=== PATIENT | male | born 1965 | race Caucasian/White ===

== ENCOUNTER 2016-12-31 11:57 | Emergency (ER) | payer SELFPAY ==
[2016-12-31 12:10] VITALS: BP 133/95
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
--- NOTE | 2016-12-31 14:01 | CR ---
Right ankle: Four views of the right ankle were obtained. Comparison: No previous study. Small plantar spur is seen. Ankle mortise is symmetric. No acute fracture, dislocation or other bony abnormality is seen. Incidental small sclerotic bone islands are noted within the distal fibula and posterior calcaneus. Impression: 1. Incidental findings. No acute bony abnormality is identified on right ankle exam. Diagnostic code #2
--- NOTE | 2016-12-31 14:01 | CR ---
Right foot: 4 views of the right foot were obtained. Comparison: No previous study. Small plantar spur is seen. Questionable lucent lesion within the proximal phalanx of the first digit is seen. This presumably represents a bone cyst. No acute fracture or other bony abnormality is seen. Impression: 1. Findings suspicious for a bone cyst within the proximal phalanx of the first digit. 2. Small plantar spur. 3. Nothing acute is identified on right foot exam. Diagnostic code #1
== END 2016-12-31 14:01 | disposition home or self-care (01) ==
LOC: JD.ED 11:57
DX: S93.401A Sprain of unspecified ligament of right ankle, initial encounter (principal); F17.210 Nicotine dependence, cigarettes, uncomplicated; Z88.0 Allergy status to penicillin; Z98.890 Other specified postprocedural states; W17.89XA Other fall from one level to another, initial encounter
CPT/HCPCS: 73610-26-RT; 73610-RT; 73630-26-RT; 73630-RT; 99283; 99284

== ENCOUNTER 2017-12-14 13:37 | Emergency (ER) | payer SELFPAY ==
[2017-12-14 14:02] VITALS: BP 147/98
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
--- NOTE | 2017-12-16 08:31 | CR ---
Right hand: Four views of the right hand were obtained. Comparison: No previous right hand exam. Deformity is identified within the base of the middle phalanx of the right second finger compatible with old injury. Soft tissue swelling is identified. Incidental cyst is noted within the distal navicular bone. No acute fracture or other bony abnormality is identified. Impression: 1. Incidental findings as noted above. No acute bony abnormality is identified on right hand exam. Diagnostic code #2
== END 2017-12-14 15:47 | disposition home or self-care (01) ==
LOC: JD.ED 13:37
DX: S62.620A Displaced fracture of middle phalanx of right index finger, initial encounter for closed fracture (principal); F17.210 Nicotine dependence, cigarettes, uncomplicated; Z88.0 Allergy status to penicillin; W22.8XXA Striking against or struck by other objects, initial encounter
CPT/HCPCS: 29125; 73130-26-RT; 73130-RT; 99283-25; 99284-25